=== PATIENT | female | born 1955 | race Caucasian/White ===

== ENCOUNTER → 2016-08-22 | Outpatient (CLI) | payer BC ==
--- NOTE | 2016-08-25 09:48 | MM ---
Reason for exam: screening (asymptomatic). Last mammogram was performed 1 year and 4 months ago. History: Patient is postmenopausal and had first child at age 40. Family history of breast cancer in paternal grandmother at age 60 and breast cancer in paternal aunt at age 60. Saline implants in both breasts, 1990. Took hormonal contraceptives for 5 years. Physical Findings: A clinical breast exam by your physician is recommended on an annual basis and results should be correlated with mammographic findings. MG Screening Mammo Implant/CAD Bilateral CC, MLO, and ID view(s) were taken. XCCL view(s) were taken of the right breast. Prior study comparison: April 30, 2015, bilateral MG 3d diag mammo imp w/cad E[facility]. November 28, 2013, bilateral MG diagnostic mammo w CAD [facility]. July 21, 2012, CAD bilateral diagnostic mammogram. The breast tissue is extremely dense which could obscure a lesion on mammography. Bilateral retropectoral saline implants are demonstrated with associated implant capsule calcifications on the left. No significant changes when compared with prior studies. ASSESSMENT: Negative, BI-RAD 1 RECOMMENDATION: Routine screening mammogram of both breasts in 1 year.
== END | disposition home or self-care (01) ==
LOC: RADMAMWWP 11:15
PROVIDERS: ATTEND Obstetrics & Gynecology
DX: Z12.31 Encounter for screening mammogram for malignant neoplasm of breast (principal); Z98.82 Breast implant status

== ENCOUNTER → 2016-11-14 | Outpatient (CLI) | payer BC ==
[2016-11-14 12:43] LABS: Blood Urea Nitrogen 19 mg/dL (7-17); Non-African American GFR(MDRD) >60 (>60 ml/min/1.73 sqM)
== END | disposition home or self-care (01) ==
LOC: LABWHC1 11:28
PROVIDERS: ATTEND Otolaryngology
DX: Z01.812 Encounter for preprocedural laboratory examination (principal); H93.A2 Pulsatile tinnitus, left ear; H91.90 Unspecified hearing loss, unspecified ear
CPT/HCPCS: 36415; 82565; 84520

== ENCOUNTER → 2017-07-06 | Outpatient (CLI) | payer BC ==
--- NOTE | 2017-07-06 08:21 | US ---
EXAMINATION TYPE: US abdomen complete DATE OF EXAM: 07/06/2017 COMPARISON: NONE CLINICAL HISTORY: 62-year-old female Upper Abd Pain R10.10. TECHNIQUE: Multiple sonographic images of the abdomen are obtained. FINDINGS: EXAM MEASUREMENTS: Liver Length: 15.2 cm Gallbladder Wall: 0.1 cm CBD: 0.2 cm Spleen: 9.9 cm Right Kidney: 8.8 x 3.7 x 5.5 cm Left Kidney: 9.5 x 5.6 x 5.7 cm Pancreas: Limited detailed assessment of the pancreatic head. Remainder appears within normal limits. Liver: Normal size with homogeneous echotexture. No focal lesion. Gallbladder: No abnormal gallbladder distention, wall thickening, pericholecystic fluid, or shadowin g calculi. Evidence for sonographic Reyes's sign: no CBD: wnl Spleen: wnl Right Kidney: No hydronephrosis. Left Kidney: Mild pelvicaliectasis. Upper IVC: wnl Abd Aorta: wnl IMPRESSION: 1. Mild left-sided pelvicaliectasis which may be transient. Correlate for any left-sided renal colic symptoms. Short interval follow-up as clinically indicated. 2. Otherwise, no specific abnormality seen on scanning of the abdomen.
== END | disposition home or self-care (01) ==
LOC: RADUSWWP 07:06
PROVIDERS: ATTEND Family Medicine
DX: N28.89 Other specified disorders of kidney and ureter (principal)
CPT/HCPCS: 76700

== ENCOUNTER → 2017-07-06 | Outpatient (CLI) | payer BC ==
--- NOTE | 2017-07-06 08:27 | US ---
EXAMINATION TYPE: US carotid duplex BILAT DATE OF EXAM: 07/06/2017 COMPARISON: Correlation ultrasound thyroid 06/16/2014 CLINICAL HISTORY: 62-year-old female R42 dizziness and giddiness, F41.9 anxiety disorder. TECHNIQUE: Carotid duplex ultrasound examination. Indirect Doppler criteria was utilized. FINDINGS: Roman scale images show no significant atherosclerotic change of the bifurcations. Incidental heterogeneous 1.3 cm nodule in the right lobe and a 7 mm heterogeneous hypoechoic nodule o n the left. EXAM MEASUREMENTS: RIGHT: Peak Systolic Velocity (PSV) cm/sec ----- Right CCA: 86.6 ----- Right ICA: 104.0 ----- Right ECA: 114.2 ICA/CCA ratio: 1.2 RIGHT: End Diastole cm/sec ----- Right CCA: 32.8 ----- Right ICA: 51.7 ----- Right ECA: 24.1 LEFT: Peak Systolic Velocity (PSV) cm/sec ----- Left CCA: 77.9 ----- Left ICA: 88.1 ----- Left ECA: 79.3 ICA/CCA ratio: 1.1 LEFT: End Diastole cm/sec ----- Left CCA: 28.5 ----- Left ICA: 41.6 ----- Left ECA: 16.9 VERTEBRALS (direction of flow): Right Vertebral: Antegrade Left Vertebral: Antegrade Rhythm: Normal IMPRESSION: 1. No hemodynamically significant stenosis appreciated in either internal carotid artery. 2. Incidental thyroid nodules measuring 1.3 cm on the right and 7 mm on the left. These are only [place] ured in one dimension, and so, it is unclear if they have significantly changed from 06/16/2014. Follo w-up as indicated. Criteria for Assigning % of Stenosis / Diameter reduction (Estimation based on the indirect measurements of the internal carotid artery velocities (ICA PSV). 1. Normal (no stenosis)=ICA PSV < 125 cm/s: ratio < 2.0: ICA EDV<40 cm/s. 2. Less than 50% stenosis=ICA PSV < 125 cm/s: ratio < 2.0: ICA EDV<40 cm/s. 3. 50 to 69% stenosis=ICA PSV of 125 to 230 cm/s: ration 2.0 ? 4.0: ICA EDV 40-100 cm/s. 4. Greater than 70% stenosis to near occlusion= ICA PSV > 230 cm/s: ratio > 4.0: ICA EDV > 100 cm/s. 5. Near occlusion= ICA PSV velocities may be low or undetectable: variable ratio and ICA EDV. 6. Total occlusion=unable to detect flow.
== END | disposition home or self-care (01) ==
LOC: RADUSWWP 07:11
PROVIDERS: ATTEND Family Medicine
DX: R42 Dizziness and giddiness (principal); F41.9 Anxiety disorder, unspecified
CPT/HCPCS: 93880

== ENCOUNTER 2017-07-28 09:49 | Day surgery (SDC) | payer BC ==
[2017-07-24 10:29] VITALS: BMI 22.2
[~2017-07-28 09:49] MED LIST: LACTATED RINGERS 1,000 ML IV SCH; LIDOCAINE 1% 20 ML VIAL (10MG/ML) FOR IV START INTRADERMA PRN
[2017-07-28 10:22] VITALS: RESP 16; TEMP 98.2
[2017-07-28] MEDS ORDERED: PROPOFOL 10 MG/ML 20 ML VIAL IV ONE (10:58)
--- NOTE | 2017-07-28 11:32 | P.PCN ---
Date of Procedure: 07/28/17 Procedure(s) Performed: Procedure: Esophagogastroduodenoscopy and biopsy. Preoperative diagnosis: Reflux symptoms and atypical chest pains. Postoperative diagnosis: 1. Small sliding hiatal hernia with no obvious esophagitis or complicated reflux disease. 2. Mild gastritis. 3. Biopsies obtained from the duodenum, antrum and esophagus. Preparation and sedation: Was provided by anesthesia. Brief clinical history: The patient is a 62-year-old female who is scheduled for this evaluation because of history of reflux and recent exacerbation of her symptoms accompanied with atypical chest pains starting last March. This evaluation is to assess for esophagitis or other pathology. Procedure: With the patient on her left lateral decubitus position and after informed consent and adequate sedation, the Olympus-GIF 160 video upper endoscope was used and was advanced under direct vision through the cricopharyngeus down the esophagus. GE junction was around 39 cm from the incisors. There was a small sliding hiatal hernia but no obvious esophagitis or complicated reflux disease. The endoscope was then passed into the stomach which was insufflated with air and inspected in detail including the retroflex view in the cardia. There was some mottling and erythema in the antrum but no ulcers or erosions. Pyloric channel did not show any ulcers. Duodenal bulb, postbulbar area and descending duodenum appeared within normal limits. Because of her symptoms, I obtained biopsies from the duodenum, antrum and esophagus then the endoscope was withdrawn. The patient tolerated the procedure well. Plan: The patient was reassured. Will await biopsy results and make further plans based on her course and biopsy results. I will keep you updated on her progress.
[2017-07-28 11:42] VITALS: BP 105/66; PULSE 69
== END 2017-07-28 12:11 | disposition home or self-care (01) ==
LOC: ORWHC2ENDO 09:49
DX: K21.9 Gastro-esophageal reflux disease without esophagitis (principal); K29.50 Unspecified chronic gastritis without bleeding; K44.9 Diaphragmatic hernia without obstruction or gangrene; M19.90 Unspecified osteoarthritis, unspecified site; J45.909 Unspecified asthma, uncomplicated; K58.9 Irritable bowel syndrome, unspecified; Z88.2 Allergy status to sulfonamides; Z79.899 Other long term (current) drug therapy
CPT/HCPCS: 43239; 88305; J2704

== ENCOUNTER → 2017-10-08 | Outpatient (CLI) | payer BC ==
--- NOTE | 2017-10-09 16:25 | BD ---
EXAMINATION TYPE: Axial Bone Density DATE OF EXAM: 10/08/2017 COMPARISON: 07/10/2015 CLINICAL HISTORY: Height: 66 IN Weight: 136 LBS RISK FACTORS HISTORY OF: Family History of Osteoporosis: MOTHER Active: YES Postmenopausal woman: AGE 53 MEDICATIONS: Additional Medications: CALCIUM, VIT D, MAGNESIUM, ZYRTEC, PROBIOTICS, EXAM MEASUREMENTS: Bone mineral densitometry was performed using the [employer] System. Bone mineral density as measured about the Lumbar spine is: ----- L1-L4(G/cm2): 0.899 T Score Values are as follows: ----- L2: -2.3 ----- L3: -2.1 ----- L4: -2.9 ----- L1-L4: -2.3 Bone mineral density has: Decreased -5.3% since study of: 07/10/2015 Bone mineral density about the R hip (g/cm2): 0.712 Bone mineral density about the L hip (g/cm2): 0.740 T Score values are as follows: -----R Neck: -2.3 -----L Neck: -2.1 -----R Total: -2.0 -----L Total: -2.4 Bone mineral density has: Decreased -2.5% since study of: 07/10/2015 IMPRESSION: Severe Osteopenia (T Score between -2.5 and -1). There is slightly increased risk of fracture and the patient may be considered for treatment. Re-Screen 2-5 years. NOTE: T-SCORE=SD OF THE YOUNG ADULT MEAN.
== END | disposition home or self-care (01) ==
LOC: RADBDWWP 15:39
PROVIDERS: ATTEND Family Medicine
DX: M85.80 Other specified disorders of bone density and structure, unspecified site (principal); M85.00 Fibrous dysplasia (monostotic), unspecified site
CPT/HCPCS: 77080

== ENCOUNTER → 2017-10-30 | Outpatient (CLI) | payer BC ==
[2017-10-30 07:54] LABS: Cholesterol 199 mg/dL (<200); HDL Cholesterol 100 mg/dL (40-60); LDL Cholesterol,Calculated 82 mg/dL (0-99); Triglycerides 83 mg/dL (<150)
== END | disposition home or self-care (01) ==
LOC: LABWHC1 06:58
PROVIDERS: ATTEND Family Medicine
DX: M85.00 Fibrous dysplasia (monostotic), unspecified site (principal); Z13.220 Encounter for screening for lipoid disorders
CPT/HCPCS: 36415; 80061

== ENCOUNTER → 2018-05-19 | Outpatient (CLI) | payer BC ==
--- NOTE | 2018-05-20 13:31 | MM ---
Reason for exam: screening (asymptomatic). Last mammogram was performed 1 year and 9 months ago. History: Patient is postmenopausal and had first child at age 40. Family history of breast cancer in paternal grandmother at age 60 and breast cancer in paternal aunt at age 60. Saline implants in both breasts, 1990. Took hormonal contraceptives for 5 years. Physical Findings: A clinical breast exam by your physician is recommended on an annual basis and results should be correlated with mammographic findings. MG 3D Screen Mammo Imp/Cad Bilateral CC, MLO, and ID view(s) were taken. Prior study comparison: August 22, 2016, bilateral MG screening mammo implant/CAD. April 30, 2015, bilateral MG 3d diag mammo imp w/cad [facility]. The breast tissue is heterogeneously dense. This may lower the sensitivity of mammography. No suspicious abnormality. There are partially calcified bilateral prepectoral saline implants. No significant changes when compared with prior studies. ASSESSMENT: Negative, BI-RAD 1 RECOMMENDATION: Routine screening mammogram of both breasts in 1 year.
== END | disposition home or self-care (01) ==
LOC: RADMAMWWP 13:00
PROVIDERS: ATTEND Obstetrics & Gynecology
DX: Z12.31 Encounter for screening mammogram for malignant neoplasm of breast (principal)
CPT/HCPCS: 77063; 77067

== ENCOUNTER → 2021-02-13 | Outpatient (CLI) | payer BC, MEDICARE ==
--- NOTE | 2021-02-18 10:21 | MM ---
Reason for exam: screening (asymptomatic). Last mammogram was performed 1 year and 1 month ago. History: Patient is postmenopausal and had first child at age 40. Family history of breast cancer in paternal grandmother at age 60 and breast cancer in paternal aunt at age 60. Saline implants in both breasts, 1990. Took hormonal contraceptives for 5 years. Physical Findings: A clinical breast exam by your physician is recommended on an annual basis and results should be correlated with mammographic findings. MG 3D Screen Mammo Imp/Cad Bilateral CC, MLO, and ID view(s) were taken. Prior study comparison: January 12, 2020, bilateral MG 3d screen mammo imp/cad. May 19, 2018, bilateral MG 3d screen mammo imp/cad. August 22, 2016, bilateral MG screening mammo implant/CAD. The breast tissue is heterogeneously dense. This may lower the sensitivity of mammography. Retropectoral saline implants. No significant changes when compared with prior studies. ASSESSMENT: Negative, BI-RAD 1 RECOMMENDATION: Routine screening mammogram of both breasts in 1 year.
== END | disposition home or self-care (01) ==
LOC: RADMAMWWP 14:56
PROVIDERS: ATTEND Obstetrics & Gynecology
DX: Z12.31 Encounter for screening mammogram for malignant neoplasm of breast (principal); Z80.3 Family history of malignant neoplasm of breast
CPT/HCPCS: 77063; 77067

== ENCOUNTER → 2022-02-14 | Outpatient (CLI) | payer MEDICARE ==
--- NOTE | 2022-02-17 09:14 | MM ---
Reason for Exam: Screening (asymptomatic). Last screening mammogram was performed 12 month(s) ago. Patient History: Menarche at age 13. First Full-Term at age 40. Late child-bearing (after 30). Postmenopausal. Patient has history of breast feeding. Patient used Hormonal Contraceptives for 5 years. 1990, Bilateral Implants. Paternal grandmother had breast cancer, age 60. Paternal aunt had breast cancer, age 60. Risk Values: Rukhsana 5 year model risk: 2.3%. NCI Lifetime model risk: 8.2%. Prior Study Comparison: 05/19/2018 Bilateral Screening Mammogram, [facility]. 01/12/2020 Bilateral Screening Mammogram, [facility]. 02/13/2021 Bilateral Screening Mammogram, [facility]. Tissue Density: There are scattered fibroglandular densities. Findings: Analyzed By CAD. There is no suspicious group of microcalcifications or new suspicious mass in either breast. Bilateral breast implants. Overall Assessment: Benign, BI-RAD 2 Management: Screening Mammogram of both breasts in 1 year. A clinical breast exam by your physician is recommended on an annual basis and results should be correlated with mammographic findings. [facility] will attempt to contact patient to return for supplemental views and ultrasound if indicated. Electronically signed and approved by: Berry Lopez DO
== END | disposition home or self-care (01) ==
LOC: RADMAMWWP 09:37
PROVIDERS: ATTEND Obstetrics & Gynecology
DX: Z12.31 Encounter for screening mammogram for malignant neoplasm of breast (principal)
CPT/HCPCS: 77063; 77067

== ENCOUNTER 2023-10-02 08:36 | Day surgery (SDC) | payer MEDICARE ==
--- NOTE | 2023-10-02 10:11 | US ---
EXAMINATION TYPE: US FNA thyroid first lesion DATE OF EXAM: 10/02/2023 10:07 AM CLINICAL INDICATION:Female, 68 years old with history of NONTOXIC SINGLE THYROID NODULE; , thyroid no dule. COMPARISON: 07/03/2014 ATTENDING: Dr. Berry Lopez PROCEDURE: Informed consent was obtained. The risks and benefits of the procedure were discussed with the patien t. The site was marked. Timeout procedure was performed Ultrasound imaging of the thyroid demonstrates right thyroid nodule The patient was prepped, draped in the usual sterile fashion, and locally anesthetized with 1% lidoca ine. Five fine needle aspiration were then performed with a 25 gauge needle. Samples were sent to [facility] pathology department for further analysis. Patient tolerated the procedure without incident and wa s sent home in stable condition. IMPRESSION: Successful ultrasound guided fine needle aspiration.
[2023-10-02 10:29] VITALS: RESP 18; TEMP 97.8
[2023-10-02 11:27] VITALS: BP 129/69; PULSE 66
== END 2023-10-02 10:25 | disposition home or self-care (01) ==
LOC: RADPROMAIN 08:36
PROVIDERS: ATTEND Family Medicine
DX: E04.1 Nontoxic single thyroid nodule (principal)
CPT/HCPCS: 10005; 88173; 88305

== ENCOUNTER → 2023-12-02 | Outpatient (CLI) | payer MEDICARE ==
--- NOTE | 2023-12-07 09:13 | MM ---
Reason for Exam: Screening (asymptomatic). Last mammogram was performed 1 year(s) and 10 month(s) ago. Patient History: Menarche at age 13. First Full-Term at age 40. Late child-bearing (after 30). Postmenopausal. Patient has history of breast feeding. Patient used Hormonal Contraceptives for 5 years. 1989, Bilateral Implants. Paternal grandmother had breast cancer, age 60. Paternal aunt had breast cancer, age 60. Risk Values: Rukhsana 5 year model risk: 2.3%. NCI Lifetime model risk: 7.9%. Prior Study Comparison: 01/12/2020 Bilateral Screening Mammogram, [facility]. 02/13/2021 Bilateral Screening Mammogram, [facility]. 02/14/2022 Bilateral MG 3D screen mammo imp/cad., [facility]. Tissue Density: The breasts are heterogeneously dense, which may obscure small masses. Findings: Analyzed By CAD. There is no suspicious group of microcalcifications or new suspicious mass in either breast. Overall Assessment: Negative, BI-RAD 1 Management: Screening Mammogram of both breasts in 1 year. . Patient should continue monthly self-breast exams. A clinical breast exam by your physician is recommended on an annual basis. This exam should not preclude additional follow-up of suspicious palpable abnormalities. Note on Rukhsana scores and lifetime risk: 1. A Rukhsana score greater than 3% is considered moderate risk. If this is the case, consider specialist referral to assess eligibility for a risk reducing agent. 2. If overall lifetime risk for the development of breast cancer is 20% or higher, the patient may qualify for future screening with alternating mammogram and breast MRI. Electronically signed and approved by: Bhavesh Hinson M.D. Radiologis
== END | disposition home or self-care (01) ==
LOC: RADMAMWWP 14:30
PROVIDERS: ATTEND Family Medicine
DX: Z12.31 Encounter for screening mammogram for malignant neoplasm of breast (principal); R92.333 Mammographic heterogeneous density, bilateral breasts; Z78.0 Asymptomatic menopausal state; Z80.3 Family history of malignant neoplasm of breast
CPT/HCPCS: 77063; 77067

== ENCOUNTER → 2024-02-15 | Outpatient (CLI) | payer MEDICARE ==
--- NOTE | 2024-02-15 15:08 | BD ---
EXAMINATION TYPE: Axial Bone Density DATE OF EXAM: 02/15/2024 CLINICAL HISTORY: 69 years old Female. ICD-10 CODE: [id number] DISRD OF BONE DENSITY Height: 65.5in Weight: 126lb FRAX RISK QUESTIONS: History of Fracture in Adulthood: yes Secondary Osteoporosis: RISK FACTORS HISTORY OF: Spine Fracture: cervical fx When: about 1989 MEDICATIONS: Osteoporosis Medications: Which medication: raloxifene none currently How Long: about 2 years EXAM MEASUREMENTS: Bone mineral densitometry was performed using the [employer] System. Bone mineral density as measured about the Lumbar spine is: ----- L1-L4(G/cm2): 0.881 T Score Values are as follows: ----- L1: -2.7 ----- L2: -2.5 ----- L3: -2.1 ----- L4: -2.8 ----- L1-L4: -2.5 Z Score Values are as follows: ----- L1: -0.8 ----- L2: -0.6 ----- L3: -0.2 ----- L4: -0.9 ----- L1-L4: -0.6 Bone mineral density has: Decreased -2.0% since study of: 10-08-17 Bone mineral density about the R hip (g/cm2): 0.703 Bone mineral density about the L hip (g/cm2): 0.679 T Score values are as follows: -----R Neck: -2.2 -----L Neck: -2.3 -----R Total: -2.4 -----L Total: -2.6 Z Score values are as follows: -----R Neck: -0.5 -----L Neck: -0.6 -----R Total: -0.9 -----L Total: -1.1 Bone mineral density has: Decreased -5.7% since study of: 10-08-17 FRAX%s: The graph provided illustrates a 19.1% chance for a major osteoporotic fx and a 4.1% chance f or the hips probability for fx in 10 years time. IMPRESSION: Osteoporosis (T Score less than -2.5). There is increased fracture risk and therapy is usually indicated based on age. Re-Screen 1-2 years. NOTE: T-SCORE=SD OF THE YOUNG ADULT MEAN. [facility], , 02/15/2024 3:06 PM
== END | disposition home or self-care (01) ==
LOC: RADBDWWP 12:52
PROVIDERS: ATTEND Family Medicine
DX: M85.88 Other specified disorders of bone density and structure, other site
CPT/HCPCS: 77080